=== PATIENT | female | born 1960 | race Caucasian/White ===

== ENCOUNTER 2019-08-07 14:36 | Outpatient (CLI) | payer OTHER, SELFPAY ==
--- NOTE | ~2019-08-07 | US_ITS ---
EXAMINATION: US carotid duplex BI DATE: 08/07/2019 15:24 INDICATION: Other specified symptoms and signs involving the circulatory system TECHNIQUE: Grayscale, color Doppler, and pulsed Doppler images of the cervical carotid arteries were obtained. The degree of vessel stenosis is placed in one of the following categories: normal, <50%, 5 0-69%, >=70% but less than near-occlusion, near-occlusion, or total occlusion. Note that percent sten osis relative to normal distal artery lumen diameter is indirectly measured from velocity measurement s as described by David, et al. Radiology 2003; 229:[id number]. COMPARISON: None. FINDINGS: RIGHT: The right common carotid artery (CCA) peak systolic velocity (PSV) is 86 cm/s. The right internal car otid artery (ICA) PSV is 83 cm/s. The right ICA end-diastolic velocity (EDV) is 22 cm/s. The right IC A/CCA PSV ratio is 1.0. Grayscale and color Doppler images yield an estimate of less than 50% diamete r reduction from plaque in the ICA. The external carotid artery (ECA) PSV is 86 cm/s. There is antegr gillian flow in the right vertebral artery. LEFT: The left CCA PSV is 88 cm/s. The left ICA PSV is 93 cm/s. The left ICA EDV is 26 cm/s. The left ICA/C CA PSV ratio is 1.1. Grayscale and color Doppler images yield an estimate of less than 50% diameter r eduction from plaque in the ICA. The ECA PSV is 155 cm/s. There is antegrade flow in the left vertebr al artery. IMPRESSION: 1. <50% stenosis in the right internal carotid artery. 2. <50% stenosis in the left internal carotid artery. Reviewed, dictated and finalized at location A.
== END 2019-08-07 14:37 | disposition home or self-care (01) ==
PROVIDERS: PCP Family Medicine; Visit Provider Family Medicine
DX: R09.89 Other specified symptoms and signs involving the circulatory and respiratory systems (principal); I65.23 Occlusion and stenosis of bilateral carotid arteries
CPT/HCPCS: 93880

== ENCOUNTER → 2019-09-02 14:05 | Outpatient (REF) | payer OTHER, SELFPAY | LOC: ANHLAB 14:05 | PROVIDERS: PCP Family Medicine; Visit Provider Nurse Practitioner | DX: C44.519 Basal cell carcinoma of skin of other part of trunk (principal) | CPT/HCPCS: 88305 ==

== ENCOUNTER → 2019-10-07 07:01 | Outpatient (REF) | payer OTHER, SELFPAY | LOC: ANHLAB 07:01 | PROVIDERS: PCP Family Medicine; Visit Provider Nurse Practitioner | DX: C44.529 Squamous cell carcinoma of skin of other part of trunk (principal) | CPT/HCPCS: 88305; 88331 ==

== ENCOUNTER 2019-10-09 11:53 | Emergency (ER) | payer OTHER, SELFPAY ==
--- NOTE | ~2019-10-09 | CT_ITS ---
EXAMINATION: CTA chest PE protocol DATE: 10/09/2019 13:43 INDICATION: Shortness of breath. Normal chest pain radiating bilaterally for one month TECHNIQUE: Computed tomography angiography (CTA) of the chest was performed with 100 mL Omnipaque-350 intravenous contrast timed to evaluate the pulmonary arteries. Coronal maximum intensity projection 3D-reconstructions were created by the technologist. Automated exposure control and iterative reconst ruction technique were employed. Exam dose: 769.47 mGy-cm total exam DLP. COMPARISON: 10/08/2021 view chest FINDINGS: There is diagnostic contrast enhancement of the pulmonary arteries and no evidence of pulmo nary embolism. No thoracic aortic aneurysm or dissection. Borderline heart size. No pericardial or pleural effusion. No hilar or mediastinal mass lesion or lymphadenopathy. There is mild atelectasis in the lower lung zones and dependent left upper lobe. There is an approximately 9 mm opacity in the posteromedial upper aspect of the left upper lobe (seri es 4 images 24, 25); this might represent a small focal area of atelectasis or consolidation or a pul monary mass. Follow-up CT imaging in 3 months should be considered. There is suggestion of mild left upper lobe infiltrate. A clinical history of fever is given. Pneumonia is a consideration for the 9 m m opacity as well as the mild left upper lobe infiltrate. No consolidation or pulmonary mass lesion i s evident otherwise. Status post cholecystectomy. Included upper abdominal structures are otherwise unremarkable. Thoracolumbar kyphosis. Degenerative changes of the thoracic and lumbar spine. No suspicious osteolyt ic or osteoblastic lesions are noted. IMPRESSION: Posteromedial upper left upper lobe nodular opacity; lung cancer is not excluded. Altern atively, this might represent a focal area of consolidation. Mild left upper lobe infiltrate is sugge sted which may be consistent with pneumonia. Follow-up CT imaging in 3 months should be considered, u nless there are prior CT examination showing stability of this 9 mm nodular area for 2 or more years. No evidence of pulmonary embolism Dr. Yates telephoned the report to emergency room physician Dr. Collins 10/09/2019 at approximately 1 405 hours Reviewed, dictated and finalized at Location A. Reviewed, dictated and finalized at location B. IMPRESSION: Posteromedial upper left upper lobe nodular opacity; lung cancer i s not excluded. Alternatively, this might represent a focal area of consolidati on. Mild left upper lobe infiltrate is suggested which may be consistent with p neumonia. Follow-up CT imaging in 3 months should be considered, unless there a re prior CT examination showing stability of this 9 mm nodular area for 2 or mo re years. No evidence of pulmonary embolism Dr. Yates telephoned the report to emergency room physician Dr. Collins 020 at approximately 1405 hours
--- NOTE | ~2019-10-09 | XR_ITS ---
XR chest 2V DATE: 10/09/2019 12:56 INDICATION: One month history of frontal chest pain radiating bilaterally. Shortness of breath. TECHNIQUE: PA and lateral views COMPARISON: 07/19/2005 portable AP chest FINDINGS: Normal heart size. Aortic arch calcification. No hilar or mediastinal enlargement. No pulmo nary infiltrate or consolidation, pleural effusion or pulmonary vascular congestion or pneumothorax. There is kyphosis and degenerative spurring of the thoracic spine. Osteopenia. Surgical clips, right upper quadrant, consistent with cholecystectomy. There is abdominal aortic calc ification, without apparent aneurysm. IMPRESSION: No active cardiopulmonary disease Aortic atherosclerosis Reviewed, dictated and finalized at location B.
[2019-10-09 11:59] VITALS: BP 130/67; PULSE 93; RESP 18; TEMP 37.3; O2SAT 96
--- NOTE | 2019-10-09 12:04 | ECG_ITS ---
Measurements Intervals [place] Rate: 87 P: -5 CA: 209 QRS: -2 QRSD: 154 T: 120 QT: 402 QTc: 484 Interpretive Statements SINUS RHYTHM WITH FIRST DEGREE AV BLOCK LEFT BUNDLE BRANCH BLOCK BASELINE ARTIFACT- I, III, AVR, AVL, AVF ABNORMAL ECG Electronically Signed On 10-09-2019 14:30:22 CDT by Charbel Reis D.O.
[2019-10-09 12:17] LABS: Basophils Percent Auto 0.5 % (0.2-1.2); Eosinophils Absolute Auto 0.1 K/mm3 (0-0.3); Eosinophils Percent Auto 1.1 % (0-4.4); Hematocrit 43.1 % (37.0-47.0); Hemoglobin 14.2 g/dL (12.0-15.0); Immature Granulocyte Absolute 0.04 K/mm3 (0.00-0.031); Immature Granulocyte Percent A 0.5 % (0-0.5); Lymphocytes Absolute Auto 0.54 K/mm3 (0.9-3.2); Lymphocytes Percent Auto 6.4 % (18.3-44.2); Mean Corpuscular HGB Conc 32.9 g/dl (32-36); Mean Corpuscular Hemoglobin 29.6 pg (26-34); Mean Corpuscular Volume 89.8 fl (80-100); Mean Platelet Volume 9.5 fl (7.4-10.4); Monocytes Absolute Auto 0.4 K/mm3 (0.1-0.6); Monocytes Percent Auto 4.3 % (2.6-8.5); Neutrophils Absolute Auto 7.3 K/mm3 (1.3-6.7); Neutrophils Percent Auto 87.2 % (45.5-73.1); Platelet Count Result 269 k/mm3 (150-375); Red Cell Distribution Width 13.8 % (11.5-14.5); White Blood Count 8.4 K/mm3 (4.5-10.0)
[2019-10-09 12:29] LABS: Anion Gap 15.3 mmol/L (7-16); Blood Urea Nitrogen 16 mg/dL (7-17); Calcium 9.3 mg/dL (8.4-10.2); Carbon Dioxide 30 mmol/L (22-30); Chloride 93 mmol/L (98-107); Estimated CRCL calculation 46 ml/min; Estimated Glomerular Filt Rate 39; Glucose 122 mg/dL (65-105); Potassium 3.3 mmol/L (3.4-5.0); Sodium 135 mmol/L (137-145)
--- NOTE | 2019-10-09 13:08 | ED.FEVER ---
HPI - Fever General Chief Complaint: Fever Stated Complaint: I might be septic , fever after dental procedure Time Seen by Provider: 10/09/19 13:02 Source: patient Mode of arrival: ambulatory Limitations: no limitations History of Present Illness HPI Narrative: Pt is a 59 yo female with history of hypertension, diabetes, and hypercholesterolemia who presents for evaluation of fever in setting of recent dental infection. Patient states she recently had 2 abscessed molars removed at her dentist office 3 days ago, has had a fever of 102 Fahrenheit since that time. Patient states she has been nauseated. She denies any current chest pain, but states intermittently she has felt short of breath and has had pain with a deep breath. She denies rhinorrhea, cough, loss of taste of sense or smell. Patient denies dysuria, hematuria. No rashes. No lesions on her nails. No recent travel. Related Data Allergies Allergy/AdvReac Type Severity Reaction Status Date / Time metronidazole Allergy Unknown Unknown Verified 10/09/19 12:05 morphine Allergy Unknown Unknown Verified 10/09/19 12:05 Review of Systems Review of Systems: Narrative: CONSTITUTIONAL: Reports fever and chills EYES: Denies visual changes, redness, or discharge. ENT: Denies rhinorrhea, congestion, sore throat, or otalgia. CARDIOVASCULAR: Denies chest pain, palpitations, or edema. RESPIRATORY: Denies cough, reports pain with a deep breath GASTROINTESTINAL: Denies abdominal pain, reports nausea GENITOURINARY: Denies dysuria or hematuria. SKIN: Denies rash or itching. MUSCULOSKELETAL: Denies back pain, joint pain, reports myalgias NEUROLOGIC: Denies headache, numbness, or weakness. [facility] Surgical History Surgical History History of cholecystectomy History of hysterectomy History of tonsillectomy Social History Social History Smoking status: Former smoker Alcohol intake: never Gender identity (if verbalized by the patient): Female Exam Narrative: Exam Narrative: GENERAL: Awake, alert, conversant HEAD: Normocephalic, atraumatic. EYES: PERRLA and EOMI. ENT: Nares clear, no rhinorrhea or epistaxis. Mucous membranes moist. NECK: Supple. No lymphadenopathy. No trismus. No recurrent abscess. CHEST: No respiratory distress, breathing even and non labored HEART: Regular rate, sinus rhythm ABDOMEN:Non distended, non tender EXTREMITIES: Normal range of motion. No edema. SKIN: Warm, dry, no rash. NEURO:No focal deficits. Alert and oriented x3 Course Vital Signs Vital signs: Vital Signs Temperature 37.3 C 10/09/19 11:59 Pulse Rate 93 10/09/19 11:59 Respiratory Rate 18 10/09/19 11:59 Blood Pressure 130/67 10/09/19 11:59 Pulse Oximetry 96 10/09/19 11:59 Temperature 37.3 C 10/09/19 11:59 Pulse Rate 88 10/09/19 15:24 Respiratory Rate 20 10/09/19 15:24 Blood Pressure 152/76 H 10/09/19 15:24 Pulse Oximetry 98 10/09/19 15:24 MDM - Fever MDM Narrative Medical decision making narrative: Patient presented for evaluation of fever in the setting of recent dental abscess extraction. Patient at the time of assessment is hemodynamically stable. ABCs are intact. Patient is afebrile, no tachycardia, no hypotension. IV access obtained and labs are drawn. Did pursue a septic work-up, patient does not have a leukocytosis, no lactic acidosis. CTA done to make sure no PE given fever some pleuritic component, and patient found to have may be left upper lobe mass versus pneumonia type process. We will call covid swab patient. No UTI. As patient is hemodynamically stable without current dyspnea, chest pain, laboratory results reassuring aside from what appears to be a very mild acute kidney injury, patient was rehydrated, is feeling well would like to be discharged home. I spoke with the patient's primary care physician so we can arrange outpa
[2019-10-09 13:59] LABS: Lactic Acid Reflex 1.3 mmol/L (0.7-2.1)
[2019-10-09] MEDS: SODIUM CHLORIDE 0.9% IV 1,000 ML 999 ML IV CONT (14:10)
[2019-10-09 14:11] VITALS: BP 149/62; PULSE 85; RESP 20; O2SAT 97
[2019-10-09 15:24] VITALS: BP 152/76; PULSE 88; RESP 20; O2SAT 98
[2019-10-09 15:40] LABS: Add Urine Microscopic? NO; Appearance Urine Clear (Clear); Bilirubin Urine Negative (Negative); Blood Urine Negative (Negative); Color Urine Straw (Yellow); Glucose Urine UA Negative (Negative); Ketones Urine Negative (Negative); Leukocyte Esterase Ur Negative LEU/UL (Negative); Nitrate Urine Negative (Negative); Protein Urine Negative (Negative); Urobilinogen Urine Negative mg/dL (<2.0)
[2019-10-09 15:45] LABS: Specific Grav Ur > 1.060 (1.001-1.035)
[2019-10-09 17:19] VITALS: BP 163/55; PULSE 80; RESP 20; O2SAT 98
[2019-10-10 00:19] LABS: SARS-CoV-2 RNA PCR Negative
== END 2019-10-09 17:21 | disposition home or self-care (01) ==
PROVIDERS: Emergency Provider Emergency Medicine; PCP Family Medicine
DX: Z20.828 Contact with and (suspected) exposure to other viral communicable diseases (principal); J18.9 Pneumonia, unspecified organism; I44.7 Left bundle-branch block, unspecified; I10 Essential (primary) hypertension; E78.5 Hyperlipidemia, unspecified
CPT/HCPCS: 36415; 71046; 71275; 80048; 81003; 83605; 85025; 87040; 87635; 93005; 96360; 96361; 99284; C9803; J7030; Q9967; U0003

== ENCOUNTER 2020-01-21 08:02 | Outpatient (CLI) | payer OTHER, SELFPAY ==
--- NOTE | ~2020-01-21 | CT_ITS ---
EXAMINATION: CT chest wo con DATE: 01/21/2020 08:26 INDICATION: Pulmonary nodule TECHNIQUE: Computed tomography (CT) of the chest was performed without intravenous contrast. The dose -length product (DLP) was 214.68 mGy-cm. Automated exposure control and iterative reconstruction tech [employer] were employed. COMPARISON: 10/09/2019 FINDINGS: There is mild atelectasis. The lungs are free of focal airspace opacities. The previously d escribed left upper lobe nodule is no longer evident, consistent with resolved infection/inflammation . There is no pleural effusion or pneumothorax. No pathologically enlarged thoracic lymph nodes are i dentified. The heart size is normal. Calcified coronary artery atherosclerosis is noted. The gallblad hemant is surgically absent. There is exaggerated kyphosis and mild spondylosis of the thoracic spine. IMPRESSION: 1. Resolved left upper lobe nodule and lung opacities, consistent with resolved infection/inflammatio n. Reviewed, dictated and finalized at location A. MICS AX CONSULTANT IMPRESSION: 1. Resolved left upper lobe nodule and lung opacities, consistent with resolved infection/inflammation.
== END 2020-01-21 08:03 ==
PROVIDERS: PCP Family Medicine; Visit Provider Nurse Practitioner Family
DX: R91.1 Solitary pulmonary nodule (principal)
CPT/HCPCS: 71250

== ENCOUNTER 2020-04-13 17:15 | Outpatient (CLI) | payer OTHER, SELFPAY ==
--- NOTE | ~2020-04-13 | XR_ITS ---
XR chest 2V DATE: 04/13/2020 18:27 INDICATION: Dyspnea TECHNIQUE: 2 views COMPARISON: 01/21/2020 CT chest FINDINGS: Heart size appears within normal range. Is aortic arch calcification and extensive abdomina l aortic calcification. Status post cholecystectomy. No hilar or mediastinal enlargement. No pulmonary infiltrate or consolidation, pleural effusion or pu lmonary vascular congestion or pneumothorax is detected. IMPRESSION: No active cardiopulmonary disease Aortic atherosclerosis Status post cholecystectomy Reviewed, dictated and finalized at location A. OFF DRIVER
== END 2020-04-13 17:16 ==
PROVIDERS: Visit Provider Nurse Practitioner Family
DX: R06.00 Dyspnea, unspecified (principal); I70.0 Atherosclerosis of aorta; Z90.49 Acquired absence of other specified parts of digestive tract
CPT/HCPCS: 71046

== ENCOUNTER 2020-05-17 13:29 | Emergency (ER) | payer OTHER, SELFPAY ==
--- NOTE | ~2020-05-17 | XR_ITS ---
EXAMINATION: XR chest 2V DATE: 05/17/2020 14:50 INDICATION: Shortness of breath. TECHNIQUE: Frontal and lateral views of the chest were obtained. COMPARISON: Chest 2 views 04/13/2020, chest CT 10/09/2019 FINDINGS: The chest demonstrates clear lungs without pneumonia, pleural effusion, or pneumothorax. Th e heart size is normal. There is chronic anterior wedging of multiple thoracic vertebral bodies. Surg ical clips in the right upper quadrant are likely from cholecystectomy. IMPRESSION: 1. No acute cardiopulmonary disease. Reviewed, dictated and finalized at location A. ERTY MANAGEMENT COORDINATOR
[2020-05-17 13:46] VITALS: BP 117/100; PULSE 84; RESP 20; TEMP 36.7; O2SAT 98
--- NOTE | 2020-05-17 13:50 | ECG_ITS ---
Measurements Intervals [place] Rate: 77 P: -14 AR: 187 QRS: 76 QRSD: 158 T: 128 QT: 431 QTc: 490 Interpretive Statements SINUS RHYTHM LEFT BUNDLE BRANCH BLOCK BASELINE ARTIFACT- I, II, III, AVR, AVL, AVF, V6 ABNORMAL ECG Electronically Signed On 05-17-2020 16:07:16 BRIM POUNCER MACHINE OPERATOR by Charbel Reis D.O.
[2020-05-17 14:18] LABS: Basophils Percent Auto 0.7 % (0.2-1.2); Eosinophils Absolute Auto 0.4 K/mm3 (0-0.3); Eosinophils Percent Auto 9.1 % (0-4.4); Hematocrit 45.7 % (37.0-47.0); Hemoglobin 15.7 g/dL (12.0-15.0); Immature Granulocyte Absolute 0.02 K/mm3 (0.00-0.031); Immature Granulocyte Percent A 0.5 % (0-0.5); Lymphocytes Absolute Auto 0.56 K/mm3 (0.9-3.2); Lymphocytes Percent Auto 13.4 % (18.3-44.2); Mean Corpuscular HGB Conc 34.4 g/dl (32-36); Mean Corpuscular Hemoglobin 29.5 pg (26-34); Mean Corpuscular Volume 85.9 fl (80-100); Mean Platelet Volume 10.5 fl (7.4-10.4); Monocytes Absolute Auto 0.2 K/mm3 (0.1-0.6); Monocytes Percent Auto 5.3 % (2.6-8.5); Platelet Count Result 256 k/mm3 (150-375); Red Blood Count 5.32 M/mm3 (4.2-5.4); Red Cell Distribution Width 13.2 % (11.5-14.5); White Blood Count 4.2 K/mm3 (4.5-10.0)
[2020-05-17 14:30] LABS: Anion Gap 9 mmol/L (8-16); Blood Urea Nitrogen 24 mg/dL (7-17); Calcium 9.2 mg/dL (8.4-10.2); Carbon Dioxide 34 mmol/L (22-30); Chloride 91 mmol/L (98-107); Estimated CRCL calculation 50 ml/min; Estimated Glomerular Filt Rate 42; Glucose 113 mg/dL (65-105); Potassium 2.6 mmol/L (3.4-5.0); Sodium 134 mmol/L (137-145)
[2020-05-17 14:39] VITALS: BP 141/79; PULSE 75; RESP 20; O2SAT 97
--- NOTE | 2020-05-17 14:41 | ED.SOB ---
HPI - SOB/Dyspnea General Chief Complaint: Shortness of Breath/Dyspnea Stated Complaint: sob Time Seen by Provider: 05/17/20 14:40 Source: patient Mode of arrival: ambulatory Limitations: no limitations History of Present Illness HPI Narrative: 60-year-old female History of hypertension, high cholesterol, depression/anxiety Here for complaints of weakness and shortness of breath with exertion She does not really have postural symptoms or nocturnal dyspnea She does not have chest pain She basically notes that the symptoms been present for a long time, essentially dating back to last summer when she had bacterial pneumonia Not much worse now but she had been reluctant to venture out for evaluation due to Covid fears Related Data Home Medications Medication Instructions Recorded Confirmed aspirin 81 mg tablet,delayed 81 mg PO DAILY 12/09/19 02/05/20 release Allergies Allergy/AdvReac Type Severity Reaction Status Date / Time metronidazole Allergy Unknown Unknown Verified 05/17/20 14:41 morphine Allergy Unknown Unknown Verified 05/17/20 14:41 Review of Systems Review of Systems: All systems reviewed & are unremarkable except as noted in HPI and below Constitutional: Constitutional: Denies chills, Reports fatigue, Denies fever(s), Denies headache(s) and Reports weakness Eyes: Eyes: Reports no additional eye complaints and Denies change in vision ENT: Denies headache(s), Denies epistaxis, Denies nasal congestion and Denies sore throat Cardiovascular: Cardiovascular: Denies chest pain, Denies leg edema, Denies palpitations and Denies dyspnea Respiratory: Respiratory: Denies cough, Reports dyspnea and Denies wheezing Gastrointestinal: Gastrointestinal: Denies abdominal pain, Denies diarrhea, Denies nausea and Denies vomiting Genitourinary: Genitourinary: Denies hematuria, Denies urinary frequency and Denies dysuria Musculoskeletal: Musculoskeletal: Denies myalgias, Denies deformity, Denies muscle weakness and Denies numbness Integumentary/Breasts: Skin/Breast: Denies rash and Denies wounds Neurologic: Denies headache(s), Denies focal weakness, Denies numbness and Denies weakness Psychiatric: Psychiatric: Reports no additional psychiatric complaints Endocrine: Endocrine: Reports fatigue and Denies palpitations Hematologic/Lymphatic: Hematologic/Lymphatic: Denies easy bleeding and Denies easy bruising Allergic/Immunologic: Allergic/Immunologic: Denies wheezing PMFSH Past Medical History Medical History Actinic keratosis Anxiety and depression Apnea Basal cell carcinoma (BCC) of upper back Essential (primary) hypertension Family history of melanoma GERD without esophagitis Hypokalemia Major depressive disorder, single episode, unspecified Mixed hyperlipidemia Nodule of left lung Right carotid bruit Seborrheic keratosis Skin cancer screening Skin neoplasm Surgical History Surgical History History of cholecystectomy History of hysterectomy History of tonsillectomy Family History Family History Grandparent Cerebrovascular accident Family history of malignant neoplasm Family history of coronary artery disease Father Family history of coronary artery disease Hypertension Mother Family history of coronary artery disease Hypertension Sibling Hypertension Other Diabetes mellitus Social History Social History (Updated 05/14/20 @ 10:09 by Tanya Jerez) Smoking status: Former smoker Alcohol intake: never Substance use: never Gender identity (if verbalized by the patient): Female Exam Const: General: no acute distress, well developed, alert and awake Nutritional Appearance: well nourished Orientation/consciousness: patient oriented x3 (alert) Limitations: no limitations HENMT: Head: normocephalic and a
[2020-05-17 14:42] VITALS: O2SAT 97
[2020-05-17 14:54] LABS: Magnesium 2.2 mg/dL (1.6-2.3)
[2020-05-17 15:08] LABS: NT Pro B Type Natriuretic Pept 266 PG/ML (5-100); Troponin I < 0.012 ng/mL (0.000-0.034)
[2020-05-17 15:37] VITALS: PULSE 72; RESP 18; O2SAT 95
[2020-05-17] MEDS: POTASSIUM CHLORIDE 20 MEQ PACKET (FOR LIQUID) 60 MEQ PO (15:43)
[2020-05-17 17:25] VITALS: BP 123/74; PULSE 73; RESP 28; O2SAT 94
[2020-05-17 17:44] LABS: Troponin I < 0.012 ng/mL (0.000-0.034)
== END 2020-05-17 17:26 | disposition home or self-care (01) ==
PROVIDERS: Emergency Medicine; Emergency Provider Emergency Medicine; PCP Family Medicine
DX: E87.6 Hypokalemia (principal); I10 Essential (primary) hypertension; K21.9 Gastro-esophageal reflux disease without esophagitis; E78.2 Mixed hyperlipidemia; F41.9 Anxiety disorder, unspecified; F32.9 Major depressive disorder, single episode, unspecified; Z85.828 Personal history of other malignant neoplasm of skin; Z87.891 Personal history of nicotine dependence; I44.7 Left bundle-branch block, unspecified
CPT/HCPCS: 36415; 71046; 80048; 83735; 83880; 84484; 85025; 93005; 99284; A9270

== ENCOUNTER 2020-06-06 13:05 | Inpatient (IN) | payer OTHER, SELFPAY ==
[2020-06-06] VITALS (11 sets, daily range): BP systolic 132–165; BP diastolic 64–107; PULSE 110–120; RESP 14–28; TEMP 35.9–36.7; O2SAT 94–100; BMI 40.2
--- NOTE | ~2020-06-06 | CT_ITS ---
EXAMINATION: CT abdomen pelvis wo con DATE: 06/06/2020 14:56 INDICATION: Generalized abdominal pain, nausea, vomiting TECHNIQUE: Computed tomography (CT) of the abdomen and pelvis was performed without intravenous contr ast. Automated exposure control and iterative reconstruction technique were employed. Exam dose: 126 6.73 mGy-cm total exam DLP. COMPARISON: None. FINDINGS: There is mild discoid atelectasis or scarring in the anterior and posterior base of the lef t lower lobe and the lingula. No consolidation is evident. Normal heart size. No pericardial or pleural effusion. Status post cholecystectomy. No hepatic, splenic, pancreatic, and adrenal or renal space-occupying ma ss lesion is evident. No bile duct or pancreatic duct dilatation. No pancreatic calcification. Normal morphology of the adrenal glands. No renal mass lesion is evident on this limited noncontrast examination. No urinary tract calculus or hydroureteronephrosis. The urinary bladder is unremarkable. Status post hysterectomy. There is atherosclerotic calcification of the abdominal aorta but no aneurysm. No intraperitoneal or retroperitoneal or pelvic mass lesion or adenopathy or ascites. Normal appendix. Minimal right and left colon diverticulosis; no CT evidence of diverticulitis. No bowel obstruction, bowel wall thickening, pneumatosis or intraperitoneal free air. Degenerative changes of the thoracic and lumbar spine. No suspicious osteolytic or osteoblastic lesio ns are noted. IMPRESSION: Normal appendix Minimal diverticulosis of the colon; no CT evidence of diverticulitis Status post cholecystectomy Status post hysterectomy Reviewed, dictated and finalized at [facility]. Reviewed, dictated and finalized at [facility].
--- NOTE | ~2020-06-06 | US_ITS ---
EXAMINATION: US venous doppler [facility] DATE: 06/07/2020 13:47 INDICATION: Lower limb pain TECHNIQUE: Grayscale ultrasound images without and with compression and Doppler ultrasound images of the bilateral lower extremity veins were obtained. COMPARISON: None. FINDINGS: The visualized portions of right common femoral vein, profunda (deep) femoral vein, femoral vein, pop liteal vein, posterior tibial veins, peroneal veins, gastrocnemius vein and greater saphenous vein ou tflow are patent. The visualized portions of left common femoral vein, profunda femoral vein, femoral vein, popliteal v ein, posterior tibial veins, peroneal veins, gastrocnemius vein and greater saphenous vein outflow ar e patent. IMPRESSION: 1. No deep venous thrombosis in either lower limb. Reviewed, dictated and finalized at [facility].
--- NOTE | ~2020-06-06 | US_ITS ---
EXAMINATION: US abdomen limited DATE: 06/07/2020 10:10 INDICATION: Elevated liver function tests. Cholecystectomy TECHNIQUE: Multiple grayscale and Doppler ultrasound images of the abdomen were obtained. COMPARISON: CT dated 06/06/2020 FINDINGS: The visualized portion of the body of the pancreas appears normal. The head and tail are obscured. Li kerne has normal echogenicity and contour, with a smooth surface. 3.8 x 1.8 x 1.7 cm region of hyperech oic focal hepatic steatosis in characteristic location along the toby hepatis and with corresponding decreased attenuation on prior CT imaging. No intrahepatic biliary duct dilation suspected. Portal v enous flow was seen in the hepatopetal, normal direction and has normal Doppler waveform. Gallbladder is surgically absent with cholecystectomy clips the gallbladder fossa on prior CT. The common bile d uct measures 4 5 mm diameter which is normal. Visualized portion of the right kidney demonstrates nor mal echogenicity and contour with no hydronephrosis. IMPRESSION: 1. Status post cholecystectomy. No intra or extra hepatic biliary ductal dilation. 2. Focal hepatic steatosis along the toby hepatis. Otherwise normal liver. Reviewed, dictated and finalized at location [facility]. IMPRESSION: 1. Status post cholecystectomy. No intra or extra hepatic biliary ductal dilati on. 2. Focal hepatic steatosis along the toby hepatis. Otherwise normal liver.
--- NOTE | ~2020-06-06 | US_ITS ---
EXAMINATION: US renal BI DATE: 06/07/2020 10:09 INDICATION: Acute renal injury TECHNIQUE: Multiple ultrasound grayscale images of the kidneys were obtained. COMPARISON: None. FINDINGS: The right kidney measures 10.4 x 4.8 x 4.4 cm. The left kidney measures 10.8 x 5.1 x 5.6 cm. The kidn eys demonstrate normal echogenicity. There is no hydronephrosis in either kidney. No stones identifi ed. The bladder is normal. IMPRESSION: 1. Normal kidneys without hydronephrosis. Reviewed, dictated and finalized at location [facility].
[2020-06-06 13:32] LABS: Basophils Absolute Auto 0.1 K/mm3 (0.0-0.1); Basophils Percent Auto 0.9 % (0.2-1.2); Eosinophils Percent Auto 0.6 % (0-4.4); Hematocrit 45.2 % (37.0-47.0); Immature Granulocyte Absolute 0.16 K/mm3 (0.00-0.031); Immature Granulocyte Percent A 2.3 % (0-0.5); Lymphocytes Absolute Auto 0.42 K/mm3 (0.9-3.2); Mean Corpuscular HGB Conc 35.4 g/dl (32-36); Mean Corpuscular Hemoglobin 29.9 pg (26-34); Mean Corpuscular Volume 84.3 fl (80-100); Mean Platelet Volume 11.7 fl (7.4-10.4); Monocytes Absolute Auto 0.3 K/mm3 (0.1-0.6); Monocytes Percent Auto 3.7 % (2.6-8.5); Neutrophils Percent Auto 86.5 % (45.5-73.1); Platelet Count Result 181 k/mm3 (150-375); Red Blood Count 5.36 M/mm3 (4.2-5.4); Red Cell Distribution Width 13.9 % (11.5-14.5)
[2020-06-06] MEDS: fentaNYL CITRATE INJ (*CRX) 100 MCG/2 ML VIAL 50 MCG IV PUSH (13:44)
[2020-06-06] MEDS: ONDANSETRON INJ 4 MG/2 ML VIAL IV PUSH (13:45)
[2020-06-06] MEDS: SODIUM CHLORIDE 0.9% IV 1,000 ML 999 ML IV CONT (13:45)
[2020-06-06 13:55] LABS: Alanine Aminotransferase 303 U/L (4-35); Albumin Level 3.7 g/dL (3.5-5.1); Alkaline Phosphatase 304 U/L (38-126); Anion Gap 13 mmol/L (8-16); Aspartate Amino Transferase 314 U/L (14-36); Bilirubin,Total 1.7 mg/dL (0.2-1.3); Blood Urea Nitrogen 69 mg/dL (7-17); Calcium 8.4 mg/dL (8.4-10.2); Carbon Dioxide 21 mmol/L (22-30); Chloride 91 mmol/L (98-107); Estimated CRCL calculation 30 ml/min; Estimated Glomerular Filt Rate 23; Glucose 141 mg/dL (65-105); Lipase 396 U/L (23-300); Potassium 3.5 mmol/L (3.4-5.0); Sodium 125 mmol/L (137-145)
--- NOTE | 2020-06-06 15:16 | PC.NURSE ---
called Tanya haddad, added on PT INR PTT [id number]
[2020-06-06 15:28] LABS: INR 0.8; Prothrombin Time 11.9 Seconds (11.1-14.7)
[2020-06-06 15:29] LABS: Partial Thromboplastin Time 26.2 SECONDS (22.3-36.8)
--- NOTE | 2020-06-06 15:45 | ADMGEN ---
This patient, Tesha Moreno, was admitted to Medical Room 250-. Patient/family oriented to hospital policies and general routines including ID bracelet, bed and alarms, visiting hours, pain management, procedures, bathroom and other care routines, personal items, smoking policy, room service/diet, and visiting hours. Information on how to activate the Rapid Response Team has been discussed. Patient/Family are encouraged to report perceived risks to care and to ask questions if they do not understand what they are told or what they should do.
--- NOTE | 2020-06-06 16:10 | ED.NAVMDI ---
HPI - Nausea/Vomiting/Diarrhea General Chief complaint: Nausea/Vomiting/Diarrhea Stated complaint: vomiting Time Seen by Provider: 06/06/20 13:14 History of Present Illness HPI Narrative: Patient is a 60-year-old female who presents ER with nausea and vomiting. Patient reports that the last time she ate was 6 days ago because she had a procedure 5 days ago on her teeth. After having her procedure and starting her doxycycline she began having persistent vomiting. Due to her persistent vomiting/retching patient has developed diffuse abdominal discomfort that is worse with movement. She denies fevers or chills or sweats. No syncope or dizziness but she did have a fall yesterday from being unsteady. She did not strike her head or lose consciousness. She does not have a gallbladder. No previous history of pancreatitis. She discontinued her doxycycline and has not helped. Related Data Home Medications Medication Instructions Recorded Confirmed aspirin 81 mg tablet,delayed 81 mg PO DAILY 12/09/19 05/20/20 release Allergies Allergy/AdvReac Type Severity Reaction Status Date / Time metronidazole Allergy Unknown Unknown Verified 05/17/20 14:41 morphine Allergy Unknown Unknown Verified 05/17/20 14:41 Review of Systems Review of Systems: All systems reviewed & are unremarkable except as noted in HPI and below Constitutional: Constitutional: Denies chills, Denies fever(s) and Reports weakness ENT: Denies nasal congestion and Denies sore throat Cardiovascular: Cardiovascular: Denies chest pain, Denies rapid heart rate and Denies radiating jaw, neck or arm pain Respiratory: Respiratory: Denies cough and Denies dyspnea Gastrointestinal: Gastrointestinal: Reports abdominal pain, Denies constipation, Denies diarrhea, Reports nausea and Reports vomiting Genitourinary: Genitourinary: Denies nocturia and Denies dysuria Comments: Urine is darker in color. [facility] Past Medical History Medical History Actinic keratosis Anxiety and depression Apnea Basal cell carcinoma (BCC) of upper back Essential (primary) hypertension Family history of melanoma GERD without esophagitis Hypokalemia Major depressive disorder, single episode, unspecified Mixed hyperlipidemia Nodule of left lung Right carotid bruit Seborrheic keratosis Skin cancer screening Skin neoplasm Surgical History Surgical History History of cholecystectomy History of hysterectomy History of tonsillectomy Family History Family History Grandparent Cerebrovascular accident Family history of malignant neoplasm Family history of coronary artery disease Father Family history of coronary artery disease Hypertension Mother Family history of coronary artery disease Hypertension Sibling Hypertension Other Diabetes mellitus Social History Social History (Updated 05/14/20 @ 10:09 by Tanya Jerez) Smoking status: Former smoker Alcohol intake: never Substance use: never Gender identity (if verbalized by the patient): Female Exam Narrative: Exam Narrative: GENERAL: Well-appearing, obese, and in no acute distress. HEAD: Normocephalic, atraumatic. ENT: Dry mucous membranes. Stitches in place at the base of tooth #9 where patient had dental surgery. No evidence of infection. CHEST: Clear to auscultation. No respiratory distress. HEART: Regular rate and rhythm. Normal peripheral pulses. ABDOMEN: Soft, diffuse tenderness, nondistended. EXTREMITIES: Normal range of motion. No edema. SKIN: Warm, dry, no rash. NEURO: Alert and oriented x3. PSYCH: Normal mood and affect. Course Course Emergency Course: Admit to hospitalist service. IV fluid ordered. Vital Signs Vital signs: Vital Signs Temperature 98.0 F 06/06/20 13:08 Pulse Rate 110 H 06/06/20 13:08 Respiratory Rate 18 03
[2020-06-06] MEDS: SODIUM CHLORIDE 0.9% IV 1,000 ML 125 ML IV CONT ×2 (16:22→22:55)
--- NOTE | 2020-06-06 17:00 | PM.IMHP ---
H&P: HPI History of Present Illness Date/Time: 06/06/20 17:00 Chief Complaint: Nausea and vomiting. Narrative: This is a pleasant 60-year-old female with mild coronary artery disease noted on cardiac catheterization in 12/2004, hypertension, dyslipidemia, and depression who presented to the emergency department earlier today via EMS from home for evaluation of nausea and vomiting. She has had several deep cleanings and root planing over the last couple of months and after each session she seems to get sick, mainly with headache, malaise, sinus pressure, etc. She was prescribed Augmentin on 05/14/2020 however that cause her pretty severe nausea and vomiting so she was changed to clindamycin. Unfortunately her symptoms continued and her dentist told her to just stop taking the antibiotics altogether as she probably did not needed any way. Since her last root planing (approximately 5 days ago) she has felt pretty bad, with frequent nausea and vomiting but now with dry heaves. She has not been able to hold down any significant solid foods in only a small amount of liquid. Her urine output has been decreased and she describes dark, almost tea colored urine. Additionally she has had fevers up to 101? but none for nearly 24 hours. She has not taken any pain medicine and specifically denies taking acetaminophen. She has not taken any other medications aside from those that she takes on a daily basis. In the emergency department she was found to have elevated LFTs with a marked increase in BUN and creatinine from baseline, and she is being admitted in this setting. With further questioning she does mention generalized abdominal aching, more so on the left side and into the back for which she has been using a heating pad with some benefit. She denies history of hepatitis and she has no concerns for exposure to such. She has never been told of chronic renal disease. She denies dysuria and feelings of incomplete voiding. No rash, lesion, jaundice, or pruritus. No sore throat. Review of Systems Review of Systems: Narrative: Twelve systems were reviewed with pertinent positives and negatives as per HPI. She has had a mild headache. She has been feeling weak. No syncope or near syncope. She has some mild discomfort along the gum lines from her recent root planing. She has not noticed any significant bleeding erythema or purulence drainage. No lymphadenopathy. She denies hematemesis, melena, and hematochezia. No acholic stools. No hematuria. Except as documented, all other systems were reviewed and are negative. [facility] Past Medical History Medical History (Updated 06/06/20 @ 16:25 by Gabby Covarrubias PA-C) Actinic keratosis Anxiety and depression Basal cell carcinoma of upper back Essential hypertension Gastroesophageal reflux disease Mild coronary artery disease (~07/2005) Mild coronary disease noted on cardiac catheterization with 30% stenosis of the mid RCA and mid LAD, 40% stenosis of the 1st diagonal, and 20 to 30% stenosis of the posterior lateral. No intervention; aggressive risk factor modification. Mixed hyperlipidemia Right carotid bruit Carotid Doppler ultrasounds in July 2019 showed less than 50% stenosis in bilateral ICAs. Seborrheic keratosis Surgical History Surgical History (Updated 06/06/20 @ 16:19 by Gabby Covarrubias PA-C) History of basal cell carcinoma excision History of cardiac catheterization (~07/2005) Mild coronary artery disease as detailed above. History of cholecystectomy (~12/2004) History of tonsillectomy History of total abdominal hysterectomy and bilateral salpingo-oophorectomy (~09/2003) For endometriosis. Family History Family History Grandparent Cerebrovascular accident Family history of malignant neoplasm Family history of coronary artery disease Father Family history of coronary artery disease Hypertension Mother Family history of kenan
[2020-06-06 17:34] LABS: Lactic Acid Reflex 2.1 mmol/L (0.7-2.1)
[2020-06-06 17:35] LABS: Acetaminophen < 10 ug/mL (10-30)
[2020-06-06 17:37] LABS: Alanine Aminotransferase 268 U/L (4-35); Albumin Level 3.5 g/dL (3.5-5.1); Alkaline Phosphatase 289 U/L (38-126); Anion Gap 11 mmol/L (8-16); Aspartate Amino Transferase 268 U/L (14-36); Bilirubin,Total 1.6 mg/dL (0.2-1.3); Blood Urea Nitrogen 65 mg/dL (7-17); CRP 5.9 mg/dL (<1.0); Calcium 8.2 mg/dL (8.4-10.2); Carbon Dioxide 22 mmol/L (22-30); Chloride 94 mmol/L (98-107); Creatine Kinase 330 U/L (30-135); Estimated CRCL calculation 29 ml/min; Estimated Glomerular Filt Rate 22; Glucose 109 mg/dL (65-105); Magnesium 1.9 mg/dL (1.6-2.3); Sodium 127 mmol/L (137-145)
[2020-06-06 18:11] LABS: Hemoglobin A1C 5.5 % (<5.7)
[2020-06-06 18:43] LABS: Add Urine Microscopic? YES; Appearance Urine Cloudy (Clear); Bacteria Urine Trace /hpf; Bilirubin Urine Negative (Negative); Blood Urine 1+ (Negative); Color Urine Amber (Yellow); Glucose Urine UA Negative (Negative); Ketones Urine Negative (Negative); Leukocyte Esterase Ur Negative LEU/UL (Negative); Mucus Urine Rare /lpf; Nitrate Urine Negative (Negative); Protein Urine 1+ mg/dL (Negative); RBC Urine 0-2 /hpf (0-2); Specific Grav Ur 1.018 (1.001-1.035); Squamous Epithelial Cell Urine Moderate /hpf (Few)
[2020-06-06 18:46] LABS: Creatinine Urine 131.1 mg/dL
[2020-06-06 19:01] LABS: Sodium Urine Random < 5 meq/L
[2020-06-06 19:09] LABS: Hepatitis B Surface Antigen Negative (Negative)
[2020-06-06 19:18] LABS: HAV RESULT Borderline (Negative); Hepatitis B Core IgM Result Negative (Negative)
[2020-06-06 19:26] LABS: Hepatitis C Virus Antibody Negative (Negative)
[2020-06-06] MEDS: ACETAMINOPHEN 325 MG TABLET 650 MG PO (20:12)
[2020-06-06 20:26] LABS: Reflex Lactic Acid Yes or No Add Lactic
[2020-06-06 21:44] LABS: Lactic Acid 3.6 mmol/L (0.7-2.1)
[2020-06-06] MEDS: METOPROLOL TARTRATE 50 MG TAB 100 MG PO (22:55)
[2020-06-07] VITALS (7 sets, daily range): BP systolic 94–168; BP diastolic 44–75; PULSE 53–109; RESP 16–18; TEMP 36.1–36.6; O2SAT 96–98
[2020-06-07] MEDS: ACETAMINOPHEN 325 MG TABLET 650 MG PO ×2 (04:40→16:01)
[2020-06-07 05:29] LABS: Hematocrit 37.9 % (37.0-47.0); Immature Platelet Fraction Pct 8.3 % (0.9-11.2); Mean Corpuscular HGB Conc 34.3 g/dl (32-36); Mean Corpuscular Hemoglobin 30.2 pg (26-34); Mean Corpuscular Volume 87.9 fl (80-100); Mean Platelet Volume 11.1 fl (7.4-10.4); Platelet Count Result 139 k/mm3 (150-375); Red Blood Count 4.31 M/mm3 (4.2-5.4); Red Cell Distribution Width 13.8 % (11.5-14.5); White Blood Count 6.3 K/mm3 (4.5-10.0)
[2020-06-07 05:53] LABS: Alanine Aminotransferase 190 U/L (4-35); Albumin Level 2.9 g/dL (3.5-5.1); Alkaline Phosphatase 242 U/L (38-126); Anion Gap 6 mmol/L (8-16); Aspartate Amino Transferase 191 U/L (14-36); Bilirubin,Total 1.2 mg/dL (0.2-1.3); Blood Urea Nitrogen 58 mg/dL (7-17); Calcium 7.7 mg/dL (8.4-10.2); Carbon Dioxide 27 mmol/L (22-30); Chloride 95 mmol/L (98-107); Estimated CRCL calculation 31 ml/min; Estimated Glomerular Filt Rate 24; Glucose 84 mg/dL (65-105); Sodium 128 mmol/L (137-145)
[2020-06-07] MEDS: SODIUM CHLORIDE 0.9% IV 1,000 ML 125 ML IV CONT (06:48)
[2020-06-07 08:14] LABS: Lactic Acid Reflex 1.1 mmol/L (0.7-2.1)
[2020-06-07 08:15] LABS: Lipase 430 U/L (23-300)
[2020-06-07 08:21] LABS: CRP 5.4 mg/dL (<1.0)
[2020-06-07 09:06] LABS: HAV RESULT Borderline (Negative)
[2020-06-07] MEDS: POTASSIUM CHLORIDE 20 MEQ TABLET 40 MEQ PO (09:07)
[2020-06-07] MEDS: DULoxetine HCL 60 MG CAPSULE.DR PO (09:07)
[2020-06-07] MEDS: ASPIRIN 81 MG ENTERIC TABLET PO (09:08)
[2020-06-07] MEDS: METOPROLOL TARTRATE 50 MG TAB 100 MG PO ×2 (09:08→20:47)
--- NOTE | 2020-06-07 12:09 | PM.IMPN ---
Progress Note: A&P Assessment and Plan (1) Acute kidney injury: Code(s): N17.9 - Acute kidney failure, unspecified Status: Acute Assessment and Plan: Most likely due to dehydration since she was having nausea and vomiting for the last 5 days. Unable to keep much down p.o.. Will hold her chlorthalidone diuretic Baseline creatinine appears to be around 1.4-1. On arrival she was 2.2, and repeat this morning was 2.1. Not much improvement with IV fluids but will continue monitoring in the morning. Renal ultrasound was ordered showing normal kidneys without hydronephrosis Continue monitoring renal function, IV fluid hydration (2) Nausea and vomiting: Code(s): R11.2 - Nausea with vomiting, unspecified Status: Acute Assessment and Plan: Patient denies any more nausea or vomiting at this time. Will place her on a heart healthy diet. P.r.n. antiemetics Could be from underlying hepatitis A since it is borderline Continue monitoring. (3) Dehydration: Code(s): E86.0 - Dehydration Status: Acute Assessment and Plan: IV fluid hydration. Patient is feeling much better at this time. Will continue monitoring renal function (4) Hyponatremia: Code(s): E87.1 - Hypo-osmolality and hyponatremia Status: Acute Assessment and Plan: Patient's baseline sodium is 134-140. Could be low due to nausea and vomiting for the last 5 days and dehydration. IV fluids with normal saline increased sodium from 125-128. Hold diuretic Continue with some IV fluids and monitoring electrolytes. (5) Transaminitis: Code(s): R74.01 - Elevation of levels of liver transaminase levels Status: Acute Assessment and Plan: Elevated LFTs most likely from acute dehydration. On arrival there were in the 300s and today they are 190s. Improving with IV fluids. Right upper quadrant ultrasound showed she is status post coli, with no intra or extrahepatic biliary ductal dilation. Did see hepatic steatosis, otherwise normal liver. Hepatitis panel ordered showing borderline hepatitis A. It recommends rechecking hepatitis A in 2 weeks. Will continue monitoring with improvement with IV fluids. (6) Hyperglycemia: Code(s): R73.9 - Hyperglycemia, unspecified Status: Acute Assessment and Plan: Hemoglobin A1c is 5.5%. Glucose this morning was normal at 84. Will stop checking glucose a.c. HS. (7) Essential hypertension: Code(s): I10 - Essential (primary) hypertension Status: Inactive Assessment and Plan: Blood pressure is slightly elevated this morning 165/79. We are holding her chlorthalidone diuretic, continuing her metoprolol. May need to switch to another blood pressure medication. Will order IV hydralazine as needed. (8) Mixed hyperlipidemia: Code(s): E78.2 - Mixed hyperlipidemia Status: Acute Assessment and Plan: Continue home medication of simvastatin. This could also cause LFT elevations. (9) Anxiety and depression: Code(s): F41.9 - Anxiety disorder, unspecified; F32.9 - Major depressive disorder, single episode, unspecified Status: Acute Assessment and Plan: Continue home medications. (10) Tachycardia: Code(s): R00.0 - Tachycardia, unspecified Status: Acute Assessment and Plan: Dehydration. Last vitals were checked at 9:00 a.m. and her heart rate was 80. No longer tachycardic but will continue monitoring. Time
[2020-06-07] MEDS: SODIUM CHLORIDE 0.9% IV 1,000 ML 100 ML IV CONT (16:01)
[2020-06-08] VITALS (9 sets, daily range): BP systolic 96–133; BP diastolic 49–80; PULSE 65–74; RESP 14–18; TEMP 36.2–37.2; O2SAT 96–98
[2020-06-08] MEDS: ACETAMINOPHEN 325 MG TABLET 650 MG PO ×3 (00:59→18:19)
[2020-06-08] MEDS: SODIUM CHLORIDE 0.9% IV 1,000 ML 100 ML IV CONT (00:59)
[2020-06-08 05:37] LABS: Hemoglobin 12.1 g/dL (12.0-15.0); Immature Platelet Fraction Pct 6.3 % (0.9-11.2); Mean Corpuscular HGB Conc 33.6 g/dl (32-36); Mean Corpuscular Hemoglobin 29.9 pg (26-34); Mean Corpuscular Volume 88.9 fl (80-100); Mean Platelet Volume 11.2 fl (7.4-10.4); Platelet Count Result 136 k/mm3 (150-375); Red Blood Count 4.05 M/mm3 (4.2-5.4); Red Cell Distribution Width 14.4 % (11.5-14.5); White Blood Count 4.9 K/mm3 (4.5-10.0)
[2020-06-08 06:03] LABS: Alanine Aminotransferase 143 U/L (4-35); Albumin Level 2.5 g/dL (3.5-5.1); Alkaline Phosphatase 265 U/L (38-126); Anion Gap 3 mmol/L (8-16); Aspartate Amino Transferase 143 U/L (14-36); Bilirubin,Total 0.8 mg/dL (0.2-1.3); Blood Urea Nitrogen 47 mg/dL (7-17); CRP 5.3 mg/dL (<1.0); Carbon Dioxide 25 mmol/L (22-30); Chloride 102 mmol/L (98-107); Estimated CRCL calculation 41 ml/min; Estimated Glomerular Filt Rate 33; Glucose 76 mg/dL (65-105); Lipase 758 U/L (23-300); Potassium 3.3 mmol/L (3.4-5.0); Sodium 130 mmol/L (137-145)
[2020-06-08] MEDS: DULoxetine HCL 60 MG CAPSULE.DR PO (08:48)
[2020-06-08] MEDS: ASPIRIN 81 MG CHEWABLE TABLET PO (08:49)
[2020-06-08] MEDS: METOPROLOL TARTRATE 50 MG TAB 100 MG PO ×2 (08:49→20:37)
[2020-06-08] MEDS: POTASSIUM CHLORIDE 20 MEQ TABLET 40 MEQ PO (09:00)
[2020-06-08] MEDS: SODIUM CHLORIDE 0.9% IV 1,000 ML 75 ML IV CONT (12:43)
--- NOTE | 2020-06-08 13:18 | PM.IMPN ---
Progress Note: A&P Assessment and Plan (1) Lightheadedness: Code(s): R42 - Dizziness and giddiness Status: Acute Assessment and Plan: Patient reports some lightheadedness today along with some sweats and had to lay down. Will check orthostatics, continue IV fluids and monitor vitals. (2) Acute kidney injury: Code(s): N17.9 - Acute kidney failure, unspecified Status: Acute Assessment and Plan: Most likely due to dehydration since she was having nausea and vomiting for the last 5 days. Unable to keep much down p.o.. Will hold her chlorthalidone diuretic Baseline creatinine appears to be around 1.4-1. On arrival she was 2.2, and repeat this morning was 1.6. Improved with IV fluids but will continue monitoring in the morning. Renal ultrasound was ordered showing normal kidneys without hydronephrosis Continue monitoring renal function, IV fluid hydration (3) Nausea and vomiting: Code(s): R11.2 - Nausea with vomiting, unspecified Status: Acute Assessment and Plan: Patient denies any more nausea or vomiting at this time. Will place her on a heart healthy diet. P.r.n. antiemetics Could be from underlying hepatitis A since it is borderline. Continue monitoring. (4) Dehydration: Code(s): E86.0 - Dehydration Status: Acute Assessment and Plan: IV fluid hydration. Patient is feeling much better at this time. Will continue monitoring renal function (5) Hyponatremia: Code(s): E87.1 - Hypo-osmolality and hyponatremia Status: Acute Assessment and Plan: Patient's baseline sodium is 134-140. Could be low due to nausea and vomiting for the last 5 days and dehydration. IV fluids with normal saline increased sodium from 125 130. Hold diuretic Continue with some IV fluids and monitoring electrolytes. (6) Transaminitis: Code(s): R74.01 - Elevation of levels of liver transaminase levels Status: Acute Assessment and Plan: Elevated LFTs most likely from acute dehydration. On arrival there were in the 300s and today they are 190s. Improving with IV fluids. Right upper quadrant ultrasound showed she is status post coli, with no intra or extrahepatic biliary ductal dilation. Did see hepatic steatosis, otherwise normal liver. Hepatitis panel ordered showing borderline hepatitis A. It recommends rechecking hepatitis A in 2 weeks. Will continue monitoring with improvement with IV fluids. (7) Hyperglycemia: Code(s): R73.9 - Hyperglycemia, unspecified Status: Acute Assessment and Plan: Hemoglobin A1c is 5.5%. Glucose this morning was normal at 76. Will stop checking glucose a.c. HS. (8) Essential hypertension: Code(s): I10 - Essential (primary) hypertension Status: Inactive Assessment and Plan: Blood pressure is low normal this morning 112/58. We are holding her chlorthalidone diuretic, continuing her metoprolol. Patient was feeling lightheaded, will check orthostatics and continue with IV fluids. May need to switch to another blood pressure medication. Will order IV hydralazine as needed. (9) Mixed hyperlipidemia: Code(s): E78.2 - Mixed hyperlipidemia Status: Acute Assessment and Plan: Continue home medication of simvastatin. This could also cause LFT elevations. (10) Anxiety and depression: Code(s): F41.9 - Anxiety disorder, unspecified; F32.9 - Major depressive disorder, single episode, unspecified Status: Acute Assessment a
[2020-06-09] VITALS (10 sets, daily range): BP systolic 114–134; BP diastolic 46–80; PULSE 57–74; RESP 16–22; TEMP 36–37; O2SAT 92–100
[2020-06-09] MEDS: ACETAMINOPHEN 325 MG TABLET 650 MG PO ×3 (02:03→23:05)
[2020-06-09] MEDS: SODIUM CHLORIDE 0.9% IV 1,000 ML 75 ML IV CONT (02:03)
[2020-06-09 05:22] LABS: Hematocrit 37.5 % (37.0-47.0); Hemoglobin 12.5 g/dL (12.0-15.0); Mean Corpuscular HGB Conc 33.3 g/dl (32-36); Mean Corpuscular Hemoglobin 29.8 pg (26-34); Mean Corpuscular Volume 89.5 fl (80-100); Mean Platelet Volume 10.8 fl (7.4-10.4); Platelet Count Result 164 k/mm3 (150-375); Red Blood Count 4.19 M/mm3 (4.2-5.4); Red Cell Distribution Width 14.7 % (11.5-14.5); White Blood Count 4.8 K/mm3 (4.5-10.0)
[2020-06-09 05:58] LABS: Alanine Aminotransferase 120 U/L (4-35); Albumin Level 2.5 g/dL (3.5-5.1); Alkaline Phosphatase 296 U/L (38-126); Anion Gap 6 mmol/L (8-16); Aspartate Amino Transferase 143 U/L (14-36); Bilirubin,Total 0.8 mg/dL (0.2-1.3); Blood Urea Nitrogen 35 mg/dL (7-17); CRP 4.8 mg/dL (<1.0); Calcium 8.1 mg/dL (8.4-10.2); Carbon Dioxide 18 mmol/L (22-30); Chloride 107 mmol/L (98-107); Estimated CRCL calculation 59 ml/min; Estimated Glomerular Filt Rate 51; Glucose 82 mg/dL (65-105); Lipase 824 U/L (23-300); Potassium 3.9 mmol/L (3.4-5.0); Sodium 131 mmol/L (137-145)
[2020-06-09] MEDS: ASPIRIN 81 MG CHEWABLE TABLET PO (08:07)
[2020-06-09] MEDS: METOPROLOL TARTRATE 50 MG TAB 100 MG PO ×2 (08:08→20:35)
[2020-06-09] MEDS: DULoxetine HCL 60 MG CAPSULE.DR PO (08:08)
--- NOTE | 2020-06-09 09:31 | PM.IMPN ---
Progress Note: A&P Assessment and Plan (1) Lightheadedness: Code(s): R42 - Dizziness and giddiness Status: Acute Assessment and Plan: Patient states this has improved/resolved. Orthostatics were negative yesterday, although symptomatic. Will finish bag of IV fluids Orthostatics today Hold chlorthalidone for now Monitor (2) Acute kidney injury: Code(s): N17.9 - Acute kidney failure, unspecified Status: Acute Assessment and Plan: Cr 1.10 today; baseline ~ Cr 1.0-1.40. Most likely due to dehydration since she was having nausea and vomiting for the previous 5 days prior to arrival. She notes this has improved. Renal ultrasound revealed normal kidneys without hydronephrosis Will hold her chlorthalidone diuretic Finish bag of IVF today, then d/c Monitor tomorrow. (3) Nausea and vomiting: Code(s): R11.2 - Nausea with vomiting, unspecified Status: Acute Assessment and Plan: Patient reports improved symptoms. Possibly due to hepatitis A as this was borderline vs other etiology Continue diet as tolerated P.r.n. antiemetics Continue monitoring (4) Dehydration: Code(s): E86.0 - Dehydration Status: Acute Assessment and Plan: Appears to have improved with IV fluid hydration. Patient is feeling much better at this time. Monitor renal function as above, d/c IV fluids after current bag (5) Hyponatremia: Code(s): E87.1 - Hypo-osmolality and hyponatremia Status: Acute Assessment and Plan: Patient's baseline sodium is 134-140. Na now 131 today. Could be due to nausea and vomiting for the previous 5 days and dehydration vs diuretic IV fluids as above Hold diuretic Monitor electrolytes (6) Transaminitis: Code(s): R74.01 - Elevation of levels of liver transaminase levels Status: Acute Assessment and Plan: Elevated LFTs most likely from acute dehydration. On arrival there were in the 300s and shows continued improvement/stable labs today. Right upper quadrant ultrasound revealed s/p cholecystectomy with no intra or extrahepatic biliary ductal dilation; noted hepatic steatosis, otherwise normal liver. Hepatitis panel ordered showing borderline hepatitis A; recommends rechecking hepatitis A in 2 weeks. Will continue monitoring daily OP hepatitis panel and CMP in 2 weeks (7) Hyperglycemia: Code(s): R73.9 - Hyperglycemia, unspecified Status: Acute Assessment and Plan: Hemoglobin A1c is 5.5%. Glucose this morning was normal at 82 Monitor daily serum glucose (8) Essential hypertension: Code(s): I10 - Essential (primary) hypertension Status: Inactive Assessment and Plan: Blood pressure 110s sys. We are holding her chlorthalidone diuretic, continuing her metoprolol. Continue metoprolol Hold chlorthalidone Monitor Orthostatic BP today PRN IV hydralazine with parameters (9) Mixed hyperlipidemia: Code(s): E78.2 - Mixed hyperlipidemia Status: Acute Assessment and Plan: Hold statin as this could also cause LFT elevations. (10) Anxiety and depression: Code(s): F41.9 - Anxiety disorder, unspecified; F32.9 - Major depressive disorder, single episode, unspecified Status: Acute Assessment and Plan: Continue home medications. (11) Tachycardia: Code(s): R00.0 - Tachycardia, unspecified Status: Resolved Assessment and Plan: Dehydration. Monit
--- NOTE | 2020-06-09 14:17 | PC.NURSE ---
On 06/09/20, the student, [Lolis Stauffer ], provided care and completed [facility] documentation on this patient. I have reviewed the student's documentation and agree with the findings.
[2020-06-09 17:56] LABS: Add Urine Microscopic? YES; Appearance Urine Cloudy (Clear); Bacteria Urine Trace /hpf; Bilirubin Urine Negative (Negative); Blood Urine Negative (Negative); Color Urine Yellow (Yellow); Glucose Urine UA Negative (Negative); Ketones Urine Negative (Negative); Leukocyte Esterase Ur Negative LEU/UL (Negative); Mucus Urine Rare /lpf; Nitrate Urine Negative (Negative); Protein Urine 1+ mg/dL (Negative); RBC Urine 0-2 /hpf (0-2); Specific Grav Ur 1.019 (1.001-1.035); Squamous Epithelial Cell Urine Moderate /hpf (Few); Urobilinogen Urine Negative mg/dL (<2.0)
[2020-06-10] VITALS: BP 121/44; PULSE 68; RESP 16; TEMP 36.1; O2SAT 90
[2020-06-10 01:47] LABS: Osmolality, Urine 603 mOsm/kg (50-1200)
[2020-06-10 05:25] VITALS: BP 142/59; PULSE 68; RESP 16; TEMP 36.7; O2SAT 98
[2020-06-10 05:47] LABS: Alanine Aminotransferase 104 U/L (4-35); Albumin Level 2.5 g/dL (3.5-5.1); Alkaline Phosphatase 328 U/L (38-126); Anion Gap 4 mmol/L (8-16); Aspartate Amino Transferase 115 U/L (14-36); Bilirubin,Total 0.5 mg/dL (0.2-1.3); Blood Urea Nitrogen 27 mg/dL (7-17); Calcium 8.4 mg/dL (8.4-10.2); Carbon Dioxide 25 mmol/L (22-30); Chloride 105 mmol/L (98-107); Estimated CRCL calculation 59 ml/min; Estimated Glomerular Filt Rate 51; Glucose 87 mg/dL (65-105); Magnesium 1.4 mg/dL (1.6-2.3); Potassium 3.5 mmol/L (3.4-5.0); Sodium 134 mmol/L (137-145)
[2020-06-10] MEDS: ACETAMINOPHEN 325 MG TABLET 650 MG PO (07:12)
[2020-06-10 08:40] VITALS: PULSE 71
[2020-06-10] MEDS: METOPROLOL TARTRATE 50 MG TAB 100 MG PO (08:40)
[2020-06-10] MEDS: DULoxetine HCL 60 MG CAPSULE.DR PO (08:40)
[2020-06-10] MEDS: ASPIRIN 81 MG CHEWABLE TABLET PO (08:41)
[2020-06-10] MEDS: MAGNESIUM SULF 2 GM/WATER 50ML 2 GM/50 ML BAG IVPB (08:45)
[2020-06-10 09:01] VITALS: BP 122/51; PULSE 71; RESP 18; TEMP 35.3; O2SAT 97
--- NOTE | 2020-06-10 12:32 | PM.DS ---
DS: Admitting Diagnosis Admitting Diagnosis Admitting Diagnosis: REMIGIO, dehydration, n/v DS: Discharge Diagnosis Discharge Diagnosis (1) Lightheadedness: Code(s): R42 - Dizziness and giddiness Status: Acute Assessment and Plan: Patient states this has resolved. Orthostatics were negative on 06/09 Orthostatics today Will resume chlorthalidone f/u with PCP (2) Acute kidney injury: Code(s): N17.9 - Acute kidney failure, unspecified Status: Acute Assessment and Plan: Cr 1.10 today; baseline ~ Cr 1.0-1.40. Most likely due to dehydration since she was having nausea and vomiting for the previous 5 days prior to arrival. She notes n/v has improved. Renal ultrasound revealed normal kidneys without hydronephrosis Resume diuretic f/u with PCP CMP in 2 weeks (3) Nausea and vomiting: Code(s): R11.2 - Nausea with vomiting, unspecified Status: Acute Assessment and Plan: Patient reports improved symptoms. Possibly due to hepatitis A as this was borderline vs other etiology Continue diet as tolerated f/u with PCP (4) Dehydration: Code(s): E86.0 - Dehydration Status: Acute Assessment and Plan: Appears to have improved with IV fluid hydration. Patient is feeling much better at this time. CMP 2 weeks (5) Hyponatremia: Code(s): E87.1 - Hypo-osmolality and hyponatremia Status: Acute Assessment and Plan: Patient's baseline sodium is 134-140. Na now 134 today. Could be due to nausea and vomiting for the previous 5 days and dehydration vs diuretic resume diuretic CMP in 2 weeks (6) Transaminitis: Code(s): R74.01 - Elevation of levels of liver transaminase levels Status: Acute Assessment and Plan: Elevated LFTs most likely from acute dehydration. On arrival there were in the 300s and shows continued improvement/stable labs today. Right upper quadrant ultrasound revealed s/p cholecystectomy with no intra or extrahepatic biliary ductal dilation; noted hepatic steatosis, otherwise normal liver. Hepatitis panel ordered showing borderline hepatitis A; recommends rechecking hepatitis A in 2 weeks. CMP, hepatitis panel in 2 weeks (7) Hyperglycemia: Code(s): R73.9 - Hyperglycemia, unspecified Status: Acute Assessment and Plan: Hemoglobin A1c is 5.5%. Glucose this morning was normal at 82 f/u with PCP (8) Essential hypertension: Code(s): I10 - Essential (primary) hypertension Status: Inactive Assessment and Plan: Blood pressure 120s sys. Continue home medications at discharge f/u with PCP (9) Mixed hyperlipidemia: Code(s): E78.2 - Mixed hyperlipidemia Status: Acute Assessment and Plan: Hold statin as this could also cause LFT elevations. F/u with PCP on when to resume (10) Anxiety and depression: Code(s): F41.9 - Anxiety disorder, unspecified; F32.9 - Major depressive disorder, single episode, unspecified Status: Acute Assessment and Plan: Continue home medications. (11) Tachycardia: Code(s): R00.0 - Tachycardia, unspecified Status: Resolved Assessment and Plan: Dehydration. Monitor DS: Summary Hospital Course Reason for hospitalization: REMIGIO, N/v, hyponatremia, transaminitis Hospital Course: Date of arrival: 06/06/20 Date of discharge: 06/10/20 Patient is a 60-year-old female with mild coronary
--- NOTE | 2020-06-10 13:41 | PC.NURSE ---
On 06/10/20, the student, [Naomi Saucedo ], provided care and completed [facility] documentation on this patient. I have reviewed the student's documentation and agree with the findings.
[2020-06-10 15:13] VITALS: BP 109/45; PULSE 71; RESP 18; TEMP 36.4; O2SAT 99
== END 2020-06-10 17:48 | disposition home or self-care (01) | DRG 683 ==
LOC: ANHED 15:12 → ANH2MED 15:27
PROVIDERS: Physician Assistant; Admitting Provider Internal Medicine; Emergency Provider Emergency Medicine; PCP Family Medicine; Visit Provider Physician Assistant
DX: N17.9 Acute kidney failure, unspecified (principal); E87.1 Hypo-osmolality and hyponatremia; E86.0 Dehydration; E78.2 Mixed hyperlipidemia; I10 Essential (primary) hypertension; F41.8 Other specified anxiety disorders; K21.9 Gastro-esophageal reflux disease without esophagitis; I25.10 Atherosclerotic heart disease of native coronary artery without angina pectoris; R00.0 Tachycardia, unspecified; R42 Dizziness and giddiness; R73.9 Hyperglycemia, unspecified; R11.2 Nausea with vomiting, unspecified; Z85.828 Personal history of other malignant neoplasm of skin; Z90.49 Acquired absence of other specified parts of digestive tract; Z90.710 Acquired absence of both cervix and uterus; Z90.722 Acquired absence of ovaries, bilateral; Z87.891 Personal history of nicotine dependence
CPT/HCPCS: 36415; 74176; 76705; 76775; 80053; 80074; 80307; 81001; 82550; 82570; 83036; 83605; 83690; 83735; 83930; 83935; 84300; 84443; 85025; 85027; 85055; 85610; 85730; 86140; 86709; 87040; 87086; 93970; 96360; 96361; 96374; 96375; 97110; 97116; 97161; 97165; 99285; A9270; G0378; J2405; J3010; J3475; J7030

== ENCOUNTER 2020-06-27 08:06 | Outpatient (CLI) | payer OTHER, SELFPAY ==
[2020-06-27 08:34] LABS: Alanine Aminotransferase 30 U/L (4-35); Albumin Level 3.7 g/dL (3.5-5.1); Alkaline Phosphatase 104 U/L (38-126); Anion Gap 6 mmol/L (8-16); Aspartate Amino Transferase 31 U/L (14-36); Bilirubin,Total 0.4 mg/dL (0.2-1.3); Blood Urea Nitrogen 14 mg/dL (7-17); Calcium 8.5 mg/dL (8.4-10.2); Carbon Dioxide 29 mmol/L (22-30); Chloride 106 mmol/L (98-107); Estimated Glomerular Filt Rate > 60; Glucose 102 mg/dL (65-105); Potassium 3.6 mmol/L (3.4-5.0); Sodium 141 mmol/L (137-145)
[2020-06-27 08:35] LABS: Alanine Aminotransferase 30 U/L (4-35); Albumin Level 3.7 g/dL (3.5-5.1); Alkaline Phosphatase 106 U/L (38-126); Aspartate Amino Transferase 33 U/L (14-36); Bilirubin,Total 0.4 mg/dL (0.2-1.3)
[2020-06-30 12:06] LABS: Hepatitis A Antibody Total Nonreactive (Nonreactive)
== END 2020-06-27 08:07 | disposition home or self-care (01) ==
LOC: ANHLAB 08:11
PROVIDERS: PCP Family Medicine; Referring Provider Physician Assistant; Visit Provider Family Medicine
DX: E87.1 Hypo-osmolality and hyponatremia (principal); N17.9 Acute kidney failure, unspecified; R74.01 Elevation of levels of liver transaminase levels
CPT/HCPCS: 36415; 80053; 80076; 86708

== ENCOUNTER 2020-08-29 08:24 | Outpatient (CLI) | payer OTHER, SELFPAY ==
[2020-08-29 08:42] LABS: Hematocrit 41.4 % (37.0-47.0); Hemoglobin 13.5 g/dL (12.0-15.0); Mean Corpuscular HGB Conc 32.6 g/dl (32-36); Mean Corpuscular Hemoglobin 30.6 pg (26-34); Mean Corpuscular Volume 93.9 fl (80-100); Mean Platelet Volume 9.3 fl (7.4-10.4); Platelet Count Result 321 k/mm3 (150-375); Red Blood Count 4.41 M/mm3 (4.2-5.4); Red Cell Distribution Width 13.3 % (11.5-14.5); White Blood Count 7.2 K/mm3 (4.5-10.0)
[2020-08-29 08:52] LABS: Alanine Aminotransferase 22 U/L (4-35); Albumin Level 4.3 g/dL (3.5-5.1); Alkaline Phosphatase 107 U/L (38-126); Anion Gap 9 mmol/L (8-16); Aspartate Amino Transferase 28 U/L (14-36); Bilirubin,Total 0.5 mg/dL (0.2-1.3); Blood Urea Nitrogen 14 mg/dL (7-17); Calcium 9.5 mg/dL (8.4-10.2); Carbon Dioxide 28 mmol/L (22-30); Chloride 106 mmol/L (98-107); Cholesterol 270 mg/dL (0-200); Estimated Glomerular Filt Rate > 60; Glucose 112 mg/dL (65-105); HDL Direct 49 mg/dL; Potassium 4.3 mmol/L (3.4-5.0); Sodium 143 mmol/L (137-145); Triglycerides 204 mg/dL (<150)
[2020-08-29 09:03] LABS: LDL Cholesterol Direct 142 mg/dL
== END 2020-08-29 08:25 | disposition home or self-care (01) ==
PROVIDERS: PCP Family Medicine; Visit Provider Nurse Practitioner Family
DX: I10 Essential (primary) hypertension (principal); E78.2 Mixed hyperlipidemia
CPT/HCPCS: 36415; 80053; 80061; 85027

== ENCOUNTER → 2020-10-20 02:21 | Outpatient (CLI) | payer OTHER, SELFPAY ==
[2020-10-20 18:17] LABS: SARS-CoV-2 RNA PCR Negative
== END ==
PROVIDERS: PCP Family Medicine; Visit Provider Nurse Practitioner Family
DX: R06.02 Shortness of breath (principal); Z20.822 Contact with and (suspected) exposure to COVID-19
CPT/HCPCS: C9803; U0003; U0005

== ENCOUNTER 2022-01-08 09:01 | Outpatient (CLI) | payer OTHER, SELFPAY ==
--- NOTE | ~2022-01-08 | XR_ITS ---
XR lumbar spine 2-3V 01/08/2022 09:23 Indication: Low back pain Procedure: 3 views lumbar spine Comparison: 02/03/2009 Findings: There is levoscoliosis. Vertebral body heights are maintained. There is disc narrowing at a ll lumbar levels. There is mild facet hypertrophy of the mid and lower lumbar spine. No acute fractur e or traumatic malalignment. There are cholecystectomy clips. Impression: 1: Moderate lumbar spondylosis with levoscoliosis. Reviewed, dictated and finalized at location [facility]. Impression: 1: Moderate lumbar spondylosis with levoscoliosis.
== END 2022-01-08 09:02 | disposition home or self-care (01) ==
PROVIDERS: PCP Family Medicine; Visit Provider Nurse Practitioner Family
DX: M47.896 Other spondylosis, lumbar region (principal)
CPT/HCPCS: 72100

== ENCOUNTER 2022-07-02 08:41 | Outpatient (CLI) | payer OTHER, SELFPAY ==
[2022-07-02 09:20] LABS: Alanine Aminotransferase 24 U/L (6-35); Albumin Level 4.5 g/dL (3.5-5.1); Alkaline Phosphatase 120 U/L (38-126); Anion Gap 7 mmol/L (8-16); Aspartate Amino Transferase 23 U/L (14-36); Bilirubin,Total 0.6 mg/dL (0.2-1.3); Blood Urea Nitrogen 16 mg/dL (7-17); Calcium 9.4 mg/dL (8.4-10.2); Carbon Dioxide 30 mmol/L (22-30); Chloride 103 mmol/L (98-107); Cholesterol 282 mg/dL (0-200); Estimated Glomerular Filt Rate > 60; Glucose 109 mg/dL (65-110); HDL Direct 44 mg/dL; Sodium 140 mmol/L (137-145); Triglycerides 230 mg/dL (<150)
[2022-07-02 09:36] LABS: Free T4 Free Thyroxine 0.95 ng/mL (0.78-2.19)
[2022-07-02 09:57] LABS: LDL Cholesterol Direct 175 mg/dL
[2022-07-02 10:52] LABS: Basophils Absolute Auto 0.1 K/mm3 (0.0-0.1); Basophils Percent Auto 0.8 % (0.2-1.2); Eosinophils Absolute Auto 0.2 K/mm3 (0-0.3); Eosinophils Percent Auto 2.4 % (0-4.4); Hematocrit 43.8 % (37.0-47.0); Hemoglobin 14.3 g/dL (12.0-15.0); Immature Granulocyte Absolute 0.07 K/mm3 (0.00-0.031); Immature Granulocyte Percent A 0.8 % (0-0.5); Lymphocytes Absolute Auto 1.79 K/mm3 (0.9-3.2); Lymphocytes Percent Auto 21.1 % (18.3-44.2); Mean Corpuscular HGB Conc 32.6 g/dl (32-36); Mean Corpuscular Hemoglobin 29.9 pg (26-34); Mean Corpuscular Volume 91.6 fl (80-100); Mean Platelet Volume 10.3 fl (7.4-10.4); Monocytes Absolute Auto 0.5 K/mm3 (0.1-0.6); Monocytes Percent Auto 6.3 % (2.6-8.5); Neutrophils Absolute Auto 5.8 K/mm3 (1.3-6.7); Neutrophils Percent Auto 68.6 % (45.5-73.1); Platelet Count Result 350 k/mm3 (150-375); Red Blood Count 4.78 M/mm3 (4.2-5.4); Red Cell Distribution Width 13.5 % (11.5-14.5); White Blood Count 8.5 K/mm3 (4.5-10.0)
== END 2022-07-02 08:42 | disposition home or self-care (01) ==
LOC: ANHLAB 08:42
PROVIDERS: PCP Family Medicine; Visit Provider Family Medicine
DX: Z13.220 Encounter for screening for lipoid disorders (principal); E78.2 Mixed hyperlipidemia; I10 Essential (primary) hypertension; F32.9 Major depressive disorder, single episode, unspecified; F41.9 Anxiety disorder, unspecified
CPT/HCPCS: 36415; 80048; 80061; 80076; 84439; 84443; 85025

== ENCOUNTER 2023-04-07 07:18 | Emergency (ER) | payer OTHER, SELFPAY ==
--- NOTE | ~2023-04-07 | XR_ITS ---
XR ankle LT min 3V DATE: 04/07/2023 08:17 INDICATION: Fall. Left ankle and foot injury, pain TECHNIQUE: 4 views COMPARISON: None FINDINGS: There is soft tissue swelling of the ankle, greater laterally. No fracture or dislocation o f the ankle or disruption of the ankle mortise. Slight posterior and prominent plantar calcaneal enthesopathy. IMPRESSION: Soft tissue swelling; no fracture or dislocation Reviewed, dictated and finalized at location B. 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
--- NOTE | ~2023-04-07 | XR_ITS ---
XR foot LT min 3V DATE: 04/07/2023 08:17 INDICATION: Fall. Left ankle and foot injury, pain TECHNIQUE: 4 views COMPARISON: None FINDINGS: There is soft tissue swelling of the ankle. There is slight posterior and prominent plantar calcaneal enthesopathy. No fracture or dislocation, periosteal reaction or bone destruction is detected. IMPRESSION: Soft tissue swelling of the ankle. No fracture or dislocation Calcaneal enthesopathy Reviewed, dictated and finalized at location B. 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
[2023-04-07 07:22] VITALS: BP 119/88; PULSE 89; RESP 20; TEMP 36.9; O2SAT 100
--- NOTE | 2023-04-07 08:08 | ED.GENADULT ---
HPI - General Adult General Chief complaint: Extremity Injury, Lower Stated complaint: left ankle injury Time Seen by Provider: 04/07/23 07:42 History of Present Illness HPI narrative: Patient is a 62-year-old female who presents to the emergency department this morning complaining of left ankle pain. 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 She was placed in a boot and provided with orthopedic follow-up. Patient call the orthopedic office and was asking him how long she should wear the boot for and when she can follow-up in the told her that the soonest they can get her in is in May. Patient decided to come here for further evaluation as if she cannot wait until May. Patient denies any chest pain, shortness of breath, nausea, vomiting, abdominal pain, dysuria, hematuria, constipation, diarrhea, melena, hematochezia, fevers or chills. Patient also denies any headaches, dizziness, lightheadedness, blurry visions, focal weakness, numbness and or tingling. There are no other modifying, alleviating, or precipitating factors at this time. Related Data Home Medications Medication Instructions Recorded Confirmed aspirin 81 mg tablet,delayed 81 mg PO DAILY 12/09/19 12/19/22 release (Adult Low Dose Aspirin) Allergies Allergy/AdvReac Type Severity Reaction Status Date / Time metronidazole Allergy Unknown Unknown Verified 04/07/23 07:33 morphine Allergy Unknown Unknown Verified 04/07/23 07:33 Review of Systems Review of Systems: All systems are reviewed and are negative unless stated otherwise in the HPI. [facility] Past Medical History Medical History Actinic keratosis Acute hepatitis A Anxiety and depression Basal cell carcinoma of upper back BMI 40.0-44.9, adult Essential hypertension Exposure to COVID-19 virus Family history of melanoma Gastroesophageal reflux disease Mild coronary artery disease (~07/2005) Mild coronary disease noted on cardiac catheterization with 30% stenosis of the mid RCA and mid LAD, 40% stenosis of the 1st diagonal, and 20 to 30% stenosis of the posterior lateral. No intervention; aggressive risk factor modification. Mixed hyperlipidemia Pneumonia Right carotid bruit Carotid Doppler ultrasounds in July 2019 showed less than 50% stenosis in bilateral ICAs. Seborrheic keratosis Surgical History Surgical History History of basal cell carcinoma excision History of cardiac catheterization (~07/2005) Mild coronary artery disease as detailed above. History of cholecystectomy (~12/2004) History of tonsillectomy History of total abdominal hysterectomy and bilateral salpingo-oophorectomy (~09/2003) For endometriosis. Family History Family History Grandparent Cerebrovascular accident Family history of malignant neoplasm Family history of coronary artery disease Father Family history of coronary artery disease Hypertension Acute myocardial infarction Mother Family history of coronary artery disease Hypertension Heart disease Sibling Hypertension Acute myocardial infarction Other Diabetes mellitus Social History Social History Social History: Surrogate decision maker: Ilana Luqueley, sister. Code status: Full code. Smoking status: Former smoker Tobacco type: cigarettes Second hand tobacco smoke exposure: No Smoking end date: 05/19/15 Alcohol intake: never Substance use: never Substance use type: does not use Lack of Transportation: No Lack of Food: Sometimes True Current Housing: I Have Housing Concerned About Future Housing: No Difficulty Paying Gas/Electri
[2023-04-07 09:14] VITALS: BP 118/75; PULSE 79; RESP 16; O2SAT 100
== END 2023-04-07 09:15 | disposition home or self-care (01) ==
PROVIDERS: Emergency Provider Emergency Medicine; PCP Family Medicine
DX: S93.402A Sprain of unspecified ligament of left ankle, initial encounter (principal); I10 Essential (primary) hypertension; I25.10 Atherosclerotic heart disease of native coronary artery without angina pectoris; E78.2 Mixed hyperlipidemia; Z85.828 Personal history of other malignant neoplasm of skin; Z87.01 Personal history of pneumonia (recurrent); Z87.891 Personal history of nicotine dependence; Z90.49 Acquired absence of other specified parts of digestive tract; Z90.710 Acquired absence of both cervix and uterus; Z90.722 Acquired absence of ovaries, bilateral; Z90.79 Acquired absence of other genital organ(s); Z79.82 Long term (current) use of aspirin; M77.32 Calcaneal spur, left foot; W19.XXXA Unspecified fall, initial encounter
CPT/HCPCS: 73610; 73630; 99283

== ENCOUNTER 2023-08-11 07:23 | Outpatient (CLI) | payer OTHER, SELFPAY | END 2023-08-11 07:24 | disposition home or self-care (01) | LOC: ANHAUDASC 07:25 | PROVIDERS: PCP Family Medicine; Visit Provider Otolaryngology | DX: H90.A21 Sensorineural hearing loss, unilateral, right ear, with restricted hearing on the contralateral side (principal); H93.13 Tinnitus, bilateral; H90.12 Conductive hearing loss, unilateral, left ear, with unrestricted hearing on the contralateral side; H65.492 Other chronic nonsuppurative otitis media, left ear | CPT/HCPCS: 92557; 92567 ==

== ENCOUNTER 2023-12-09 09:14 | Outpatient (CLI) | payer OTHER, SELFPAY ==
[2023-12-09 09:42] LABS: Basophils Percent Auto 0.5 % (0.2-1.2); Eosinophils Absolute Auto 0.2 K/mm3 (0-0.3); Eosinophils Percent Auto 3.2 % (0-4.4); Hematocrit 40.5 % (37.0-47.0); Hemoglobin 12.8 g/dL (12.0-15.0); Immature Granulocyte Absolute 0.03 K/mm3 (0.00-0.031); Immature Granulocyte Percent A 0.5 % (0-0.5); Lymphocytes Absolute Auto 1.65 K/mm3 (0.9-3.2); Lymphocytes Percent Auto 25.1 % (18.3-44.2); Mean Corpuscular HGB Conc 31.6 g/dl (32-36); Mean Corpuscular Hemoglobin 28.6 pg (26-34); Mean Corpuscular Volume 90.4 fl (80-100); Mean Platelet Volume 9.7 fl (7.4-10.4); Monocytes Absolute Auto 0.5 K/mm3 (0.1-0.6); Neutrophils Absolute Auto 4.2 K/mm3 (1.3-6.7); Neutrophils Percent Auto 63.7 % (45.5-73.1); Platelet Count Result 273 k/mm3 (150-375); Red Blood Count 4.48 M/mm3 (4.2-5.4); Red Cell Distribution Width 13.9 % (11.5-14.5); White Blood Count 6.6 K/mm3 (4.5-10.0)
[2023-12-09 09:52] LABS: Alanine Aminotransferase 21 U/L (6-35); Albumin Level 4.2 g/dL (3.5-5.1); Alkaline Phosphatase 117 U/L (38-126); Anion Gap 9 mmol/L (4-12); Aspartate Amino Transferase 31 U/L (14-36); Bilirubin,Total 0.7 mg/dL (0.2-1.3); Blood Urea Nitrogen 15 mg/dL (7-17); Calcium 9.2 mg/dL (8.4-10.2); Carbon Dioxide 26 mmol/L (22-30); Chloride 102 mmol/L (98-107); Cholesterol 154 mg/dL (0-200); Estimated Glomerular Filt Rate > 60; Glucose 115 mg/dL (65-110); HDL Direct 40 mg/dL; Potassium 4.3 mmol/L (3.4-5.0); Sodium 137 mmol/L (137-145); Triglycerides 208 mg/dL (<150)
[2023-12-09 10:01] LABS: NT Pro B Type Natriuretic Pept 277 pg/mL (19.9-100)
[2023-12-09 10:04] LABS: LDL Cholesterol Direct 76 mg/dL
[2023-12-09 10:23] LABS: Thyroid Stimulating Hormone 0.147 uIU/mL (0.465-4.680)
== END 2023-12-09 09:15 | disposition home or self-care (01) ==
LOC: ANHLAB 09:15
PROVIDERS: PCP Family Medicine; Visit Provider Physician Assistant Medical
DX: R01.1 Cardiac murmur, unspecified (principal); R60.9 Edema, unspecified; E78.2 Mixed hyperlipidemia; R73.09 Other abnormal glucose; I10 Essential (primary) hypertension
CPT/HCPCS: 36415; 80053; 80061; 83880; 84443; 85025

== ENCOUNTER 2023-12-18 12:13 | Outpatient (CLI) | payer OTHER, SELFPAY ==
--- NOTE | 2023-12-18 12:21 | ECHO_ITS ---
Patient Info Name: Tesha Moreno Age: 63 years : 1960 Gender: Female Ht: 64 in Wt: 252 lbs BSA: 2.33 m2 HR: 73 bpm BP: 112 / 73 mmHg Heart Rhythm: Sinus Rhythm Technical Quality: Fair Exam Date: 12/18/2023 12:38 PM Exam Location: Echo Lab Patient Status: Outpatient Admit Date: 12/18/2023 Staff Ordering Physician: Charlotte Gaytan PAC Personnel Technician: Aviva Fernandez RDCS Attending Provider: Charlotte Gaytan PAC Referring Physician: Lukas DE LUNA; Exam Type: CA echo dop color flow w con Study Info Indications R01.1 - Cardiac murmur, unspecified Complete two-dimensional, color flow and Doppler transthoracic echocardiogram is performed with contrast to opacify the left ventricle and to improve the deliniation of the left ventricle endocardial borders. Contrast/Agitated Saline Contrast/Ag. Saline: Definity Amount: 2.00 ml Administered By: Aviva Fernandez RDCS New IV Access: Left Site Condition: IV removed Summary 1. Left ventricular chamber dimension is normal. 2. Left ventricular systolic function is normal, estimated at 65-70%. 3. Left ventricular septal wall motion is abnormal with septal motion related to bundle branch block. 4. The left ventricular diastolic function is grade I diastolic dysfunction. 5. E/e' 7 is not elevated. 6. Left atrial chamber dimension is moderately enlarged. 7. The mitral valve has mildly calcified annulus. 8. No pulmonary hypertension, estimated pulmonary arterial systolic pressure is 31 mmHg. 9. There is trace pulmonic regurgitation. Left Ventricle E/e' 7 is not elevated. Left ventricular chamber dimension is normal. Left ventricular systolic function is normal, estimated at 65-70%. Left ventricular septal wall motion is abnormal with septal motion related to bundle branch block. The left ventricular diastolic function is grade I diastolic dysfunction. Right Ventricle Right ventricular chamber dimension is normal. Right ventricular systolic function is normal. Left Atria Left atrial chamber dimension is moderately enlarged. Right Atria Right atrial chamber dimension is normal. Aortic Valve The aortic valve is trileaflet. There is no aortic valve stenosis. There is no aortic valve regurgitation. Pulmonic Valve There is trace pulmonic regurgitation. Mitral Valve The mitral valve has mildly calcified annulus. There is no mitral valve stenosis. There is no mitral valve regurgitation. Tricuspid Valve There is no tricuspid valve regurgitation. No pulmonary hypertension, estimated pulmonary arterial systolic pressure is 31 mmHg. Pericardium/Pleural There is no pericardial effusion. Inferior Vena Cava Normal inferior vena cava with >50% collapse upon inspiration consistent with normal right atrial pressure, 5 mmHg. Aorta The aortic root size at the sinus of Valsalva is normal. Left Ventricular Outflow Tract Name Value Normal LVOT 2D LVOT Diameter 2.02 cm LVOT Doppler LVOT Peak Gradient 5 mmHg LVOT Mean Gradient 3 mmHg LVOT VTI 23.48 cm LVOT VTI/AV VTI Ratio 0.85 LVOT
[2023-12-18] MEDS: PERFLUTREN LIPID MICROSPHERES 1.5 ML VIAL DILUTED TO 10 ML TOTAL VOLUME IV PUSH (13:00)
--- NOTE | 2023-12-18 13:42 | IVDEFINITY ---
Prior to administration of IV Definity the patient was educated on the risks and benefits of the imaging enhancing agent including potential adverse side effects. The patient verbalized understanding. Allergies were verified. No exclusion criteria were identified and at least one of the following inclusion criteria were met: 1) physician request, 2) patient technically difficult to image (per the [place] [employer] guidelines of two or more segments not discernable within the apical view), or 3) questionable left ventricular function. ?
== END 2023-12-18 12:14 | disposition home or self-care (01) ==
LOC: ANHCARD 12:16
PROVIDERS: PCP Family Medicine; Visit Provider Physician Assistant Medical
DX: R01.1 Cardiac murmur, unspecified (principal); R06.9 Unspecified abnormalities of breathing; R73.09 Other abnormal glucose; I10 Essential (primary) hypertension
CPT/HCPCS: C8929; Q9957